=== PATIENT | male | born 1940 | race Caucasian/White ===

== ENCOUNTER 2016-07-22 16:31 | Observation (INO) | payer OTHER ==
--- NOTE | ~2016-07-22 | HP ---
History And Physical [place] [id number] [facility] [place]. [address] NAME: BETSEY SCHULTE : 38 STATUS : ADM Hugo PAT#: [id number] AGE: 76 ADM/REG DATE : 07/22/16 MR#: [id number] REPORT SERV DATE: 07/23/16 DICTATED BY: JEB TERRY DATE: 07/23/16 REPORT STATUS : Draft TRANSCRIBED BY: MODBrittany DATE: 07/23/16 DATE OF ADMISSION: 07/22/2016 CHIEF COMPLAINT: Intractable nausea, vomiting, and generalized weakness. HISTORY OF PRESENT ILLNESS: This is a 76-year-old male, who presents to the emergency room at [facility] with the above-mentioned complaint. History is obtained from the patient and his , who is at bedside, and we also reviewed data available on the happn system as well. According to Mr. Schulte and his , he had been in his usual state of health until about two weeks or so ago when he started having a cough. This was accompanied by massive sinus drainage according to him, which was his main problem. He was at that time seen by his primary care physician, who had prescribed him amoxicillin and later a nasal spray as well. Unfortunately, patient did not take the amoxicillin as he had a vague recollection maybe he would have been allergic to it in the past. However, refilled it, but he did not take it. Instead, he has been taking Benadryl orally because of his presumed allergic sinus problems. This has not really helped him but he continues to take it. However, today after lunch, when he took one he started having violent shaking all over his body and this has never happened before. He called EMS, and the patient was subsequently brought to the emergency room to be evaluated. While in the ambulance, he also had nausea with two episodes of vomiting. In the emergency room, initial workup revealed he had leukocytosis with a febrile illness. He had intractable nausea and vomiting along with his cough. Hospitalist Service is asked to admit him for further evaluation and treatment. At the time of my evaluation, he denied any chest pain, palpitations, or orthopnea. He did have a cough, which was essentially nonproductive, not associated with any hemoptysis, night sweats, or weight loss. He has not had any recent falls or loss of consciousness. No history of fevers or chills at home. He did have one episode of this shaking, which he came in for. No history of hematemesis, hematochezia, or hematuria. No other history of recent travel or exposures. PAST MEDICAL HISTORY: None. SOCIAL HISTORY: He does not smoke, drink, or use recreational drugs. FAMILY HISTORY: Noncontributory. MEDICATIONS: His medications at home were reviewed by me in the chart today and reordered by me. REVIEW OF SYSTEMS: As in history of present illness. All other systems were reviewed in detail and are quite unremarkable. History And Physical [address] [place]. [address] NAME: BETSEY SCHULTE : 39 STATUS : ADM Hugo PAT#: [id number] AGE: 76 ADM/REG DATE : 07/22/16 MR#: [id number] REPORT SERV DATE: 07/23/16 DICTATED BY: JEB TERRY DATE: 07/23/16 REPORT STATUS : Draft TRANSCRIBED BY: TERESA DATE: 07/23/16 PHYSICAL EXAMINATION: GENERAL: This is a pleasant 76-year-old, not in any acute distress. He is alert, awake, and oriented to time, place, and person. HEENT: His head is atraumatic, normocephalic. Pupils are equal, reacting to light and accommodating. External ocular muscles are intact. Membranes are moist and pink. Sclerae are nonicteric. NECK: Supple with no jugular venous distention, lymphadenopathy, or thyromegaly. LUNGS: Clear to auscultation with no wheezes, rubs, or crackles. HEART: Heart sounds were regular with no murmurs, rubs, or gallops. ABDOMEN: Soft, nontender. Bowel sounds are present. EXTREMITIES: No cyanosis, clubbing, or edema. NEUROLOGIC: Grossly intact. No focal sensory or motor deficits. Higher functions appeared intact. Gait was not examined. VITAL SIGNS: His vital signs today showed a temperature of 99.3 upon arrival, pulse was 84, respirations 20 a minute, and blood pressure upon arrival was 123/88, oxygen saturations were 96%, breathing 2-3 L via nasal cannula. LABORATORY DATA: Reviewed on the happn system showed a normal CMP with a blood glucose of 103. Troponin was 0.02 and lactate was 1.5. BNP was 111.1. CBC showed a white blood cell count of 25,500, otherwise, normal hemoglobin, hematocrit, and platelet count. Urinalysis did not reveal any gross abnormality. Films of the CTA of his chest were reviewed by me on the PACS today and interpreted by me. Per my interpretation, there is no pulmonary embolism. Lung windows did not reveal any lobar consolidations, effusions. 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 IMPRESSION: 1. Generalized weakness. 2. Intractable nausea and vomiting. 3. Leukocytosis. 4. Febrile illness. 5. Dyspnea with cough. 6. Ascending thoracic aorta of 4 cm without dissection. PLAN: We will admit Mr. Schulte to the Hospitalist Service with telemetry for a 24-hour observation period. After cultures are drawn, we will start him on empiric IV antibiotic therapy. Check his lactate procalcitonin level. Provide him with intravenous Zofran and Phenergan for his symptoms of nausea and vomiting, keep him n.p.o. for now. We will start him on IV fluids for volume replacement, check chemistry, and replete electrolytes as needed. His CTA is negative for any infiltrates or consolidation. It is quite possible he might have had an aspiration causing pneumonitis, but however, I think acute bronchitis is probably what he has along with sinusitis. We will start him on antibiotics as mentioned above. We will start him on bronchodilators and continue oxygen therapy and start him on intravenous and nasal steroids. He will be on unfractionated heparin for DVT prophylaxis while here as well. I have discussed the above plans with the patient and his . Questions were answered, and they are agreeable to the above recommendations. I have also History And Physical [address] [address] NAME: BETSEY SCHULTE : 38 STATUS : ADM Hugo PAT#: [id number] AGE: 76 ADM/REG DATE : 07/22/16 MR#: [id number] REPORT SERV DATE: 07/23/16 DICTATED BY: JEB TERRY DATE: 07/23/16 REPORT STATUS : Draft TRANSCRIBED BY: TERESA DATE: 07/23/16 told them that he will not be taking his antihistamine as he used to. They are agreeable to the above recommendations. Hospitalist Service will be following him during his stay here. /ANTL Jeb Terry M.D. / [id number] CC: Paras Arreaga M.D.
--- NOTE | ~2016-07-22 | DS ---
Discharge Summary [facility] [address] [facility] [place] [place]. [address] NAME: BETSEY SCHULTE : 38 STATUS : ADM Hugo PAT#: [id number] AGE: 76 ADM/REG DATE : 07/22/16 MR#: [id number] REPORT SERV DATE: 07/24/16 DICTATED BY: EVA MCGREGOR DATE: 07/24/16 REPORT STATUS : Draft TRANSCRIBED BY: MODL DATE: 07/24/16 ADMISSION DATE: 07/22/2016 DISCHARGE DATE: 07/24/2016 FINAL HOSPITAL DIAGNOSES: 1. Nausea, vomiting, weakness, resolved. 2. Leukocytosis, possible viral illness or steroid reaction. 3. Sinusitis. CONSULTATIONS: None. PROCEDURES: CTA of the chest showing no pulmonary embolism. Ascending thoracic aortic aneurysm measuring 4 cm. No dissection. No active pulmonary disease. Cholelithiasis without cholecystitis. Bilateral lower extremity Dopplers showing no evidence of DVT in left or right lower extremity. Chest x-ray done on 07/22/2016 showing no acute process. CURRENT PHYSICAL FINDINGS AND HISTORY OF PRESENT ILLNESS: Please see dictated H and P by Dr. Alanis. In brief, the patient is a 76-year-old male. He presented with a complaint of sinus symptoms and cough, going on for nausea, vomiting, and shaking episode prior to admission. Vital signs at the time of admission, temperature was 99.3, his T-max has been 99.5 on 07/23/2016. Otherwise, he has been completely afebrile. The patient has not been tachycardic. He has had no hypoxia. Respiratory rate and sats have been well within norm. LABORATORY WORK: Laboratory at time of admission, he had a procalcitonin of 1.77. Subsequent recheck on the 07/24/2016 was 0.82. Initial BMP was unremarkable. His creatinine was 1.11, has decreased to 0.97. He had a PO4 of 1.9 which corrected to 2.9. He had a troponin of less than 0.02 on admission. BNP of 111.1, lactate 1.5. He had a white count of 25,000 on admission, 17 the following day and 24.9 the day after. H and H at the time of discharge was 12.3 and 36.1, platelets were 256. He had a D-dimer of 2.2. Flu screen which was negative. A urinalysis which was negative. Blood cultures have been negative to date. Sputum culture in progress. Chest x-ray was unremarkable. HOSPITAL COURSE: The patient was admitted with a suspected viral illness or sinusitis. His symptoms seem to be improving at the time of discharge. He was placed on IV fluids, Levaquin, and subcu heparin. He was also placed on Solu-Medrol 80 IV q.8 and DuoNeb. I saw the patient on 07/23/2016, ordered a flu swab that was negative. Replaced his phosphorus. Ordered followup labs. Stopped his IV fluids. Ordered an ultrasound and placed him on a regular diet. When he was re examined today, he clinically appeared fine. He was having no specific complaints whatsoever; however, his leukocytosis had increased given suspicion this was from the steroids. I had a long discussion with him concerning his aneurysm, the need for followup and he voiced understanding. I felt even with his negative CTA, with his D- dimer being markedly elevated, an ultrasound would be prudent to rule out lower extremity DVT and this was negative. Repeat procalcitonin was checked and it was negative. The patient then requested to go home and follow up with his primary care physician. Certainly from the standpoint of his initial illness, this does seem to be resolved. He has been given instructions on the aneurysm and need for followup. I expressed with him my concern Discharge Summary [address] [place]. [address] NAME: BETSEY SCHULTE : 38 STATUS : ADM Hugo PAT#: [id number] AGE: 76 ADM/REG DATE : 07/22/16 MR#: [id number] REPORT SERV DATE: 07/24/16 DICTATED BY: EVA MCGREGOR DATE: 07/24/16 REPORT STATUS : Draft TRANSCRIBED BY: MODBrittany DATE: 07/24/16 that although his procalcitonin was lower and he was not having any fever, his leukocytosis may be secondary to the steroids, certainly an underlying bone marrow problem worsened infection or this other source could be noted. I also discussed with the patient my preference would be that he would discontinue the steroids. We will repeat his blood count in the morning as he was not becoming lower, look for secondary source of infection, recheck his blood cultures and consider as the etiologies for the elevated white count. Because of the weather and the patient feeling fine, he did not wish to do this. He understands that at this point without his white count returning normal and understanding that it is multitudes over normal, that there is some risk involved including undiagnosed bone marrow problem, worsening infection, sepsis, or other underlying problems with his initial episode which brought him to the hospital. He understands all this, but again accepts the risks and benefits at this time and is requesting to be discharged home. Since he does appear clinically stable, I would not feel so strongly as to ask him to sign out AMA, but would request that he make a followup appointment with his PCP, first of next week to recheck his blood counts and continue his evaluation and followup. The patient agrees to do so, and he certainly responsible to do so. His was present during the conversation, had the opportunity to ask any questions, and they were answered to best of my ability. At this time, the patient is still requesting discharge, so we will discharge this evening. MEDICATIONS: Aspirin 81, Os-Jae 500 daily, multivitamin one per day, fish oil 2000 one per day, Antivert 25, Cialis 20, Benadryl 25. He was given a prescription for Levaquin 750 one p.o. daily #6 to complete a one-week course. He is to return for any recurrence of his symptoms. TASHA/TERESA Eva Mcgregor M.D. / [id number] CC: Paras Gibson M.D.
[2016-07-22 19:02] LABS: BASOPHILS 0.4 %; EOSINOPHILS 1.5 %; EOSINOPHILS ABSOLUTE 0.39 10/3/uL (0.0-0.53); HEMOGLOBIN 14.1 g/dL (13.6-17.8); IMMATURE GRANULOCYTES 0.5 %; IMMATURE GRANULOCYTES ABSOLUTE 0.14 10/3/uL (0.0-0.11); LYMPHOCYTES 3.4 %; LYMPHOCYTES ABSOLUTE 0.88 10/3/uL (0.67-4.30); MEAN CORPUS HGB CONC 33.6 g/dL (32.0-36.0); MEAN CORPUSCULAR HEMOGLOB 29.6 pg (26.0-34.0); MEAN CORPUSCULAR VOLUME 88.2 fL (80-100); MEAN PLATELET VOLUME 9.8 fL (9.2-13.0); MONOCYTES 2.3 %; MONOCYTES ABSOLUTE 0.59 10/3/uL (0.21-1.20); NEUTROPHILS 91.9 %; NEUTROPHILS ABSOLUTE 23.44 10/3/uL (2.02-8.40); PLATELET COUNT 265 10/3/uL (150-400); RED CELL COUNT 4.76 10/6/uL (4.7-6.1)
[2016-07-22 19:09] LABS: ER CBC TAT 0 Hrs 14 Mins; WHITE BLOOD CELLS 25.5 10/3/uL (4.5-10.5)
[2016-07-22 19:11] LABS: INTERNATIONAL NORMAL RATI 1.2 UNITS (-); PROTIME (NOT ORD) 14.8 SEC (12.0-14.5)
[2016-07-22 19:14] LABS: MANUAL DIFF NO %
[2016-07-22 19:17] LABS: BUN (BLOOD UREA NITROGEN) 23 MG/DL (6-23); CALCIUM, SERUM 9.4 MG/DL (8.5-10.4); CHEST PAIN PROFILE TAT 0 Hrs 22 Mins; CHLORIDE, SERUM 109 MMOL/L (96-112); CO2 (CARBON DIOXIDE) 24 MMOL/L (24-34); CREATININE 1.11 MG/DL (0.70-1.30); GFR AFRICAN AMERICAN 74 ML/MIN (>=60); GFR NON AFRICAN AMERICAN 64 ML/MIN (>=60); GLUCOSE, SERUM 103 MG/DL (60-99); POTASSIUM, SERUM 4.5 MMOL/L (3.5-5.3); SODIUM, SERUM 142 MMOL/L (135-148); TROPONIN I <0.02 NG/ML (<0.05)
[2016-07-22 19:37] LABS: BAND NEUTROPHILS 8 %; ER DIFF TAT 0 Hrs 42 Mins; LYMPHOCYTES 3 %; LYMPHOCYTES ABSOLUTE (CALC) 0.77 10/3/uL (0.67-4.30); MONOCYTES 1 %; MONOCYTES ABSOLUTE (CALC) 0.26 10/3/uL (0.21-1.20); NEUTROPHILS ABSOLUTE (CALC) 24.48 10/3/uL (2.02-8.40); PLATELET ESTIMATE ADQ (ADEQUATE); RBC MORPHOLOGY NORM (NORMAL); SEGMENTED NEUTROPHIL (0) 88 %; TOTAL NUCLEATED CELLS 100
[2016-07-22] MEDS ORDERED: MCZ25 PO (20:08)
[2016-07-22] MEDS ORDERED: ASAB PO (20:08)
[2016-07-22] MEDS ORDERED: MULTIVITAMI1 PO (20:08)
[2016-07-22] MEDS ORDERED: OS500+D PO (20:08)
[2016-07-22] MEDS ORDERED: FISH-EPA1000 MG PO (20:09)
[2016-07-22] MEDS ORDERED: BEN25 PO (20:09)
[2016-07-22] MEDS ORDERED: CIALIS20 MG PO (20:09)
[2016-07-22 21:37] LABS: WBC (NOT ORDERED) (RFLEX) 0 (0-5)
[2016-07-22 21:46] LABS: ASCORBIC ACID (UR NOT ORDER) NEG (NEG); BILIRUBIN, URINE NEGATIVE (NEG); ER URINALYSIS TAT 0 Hrs 11 Mins; KETONE, URINE TRACE MG/DL (NEG); LEUKOCYTE ESTERASE(NOT OR NEG (NEG); NITRITE (URINE) NEG (NEG)
[2016-07-23 08:30] LABS: BASOPHILS 0.1 %; BASOPHILS ABSOLUTE 0.02 10/3/uL (0.0-0.16); EOSINOPHILS 0.3 %; EOSINOPHILS ABSOLUTE 0.06 10/3/uL (0.0-0.53); HEMATOCRIT 38.6 % (40.0-51.0); HEMOGLOBIN 13.3 g/dL (13.6-17.8); IMMATURE GRANULOCYTES 0.5 %; IMMATURE GRANULOCYTES ABSOLUTE 0.09 10/3/uL (0.0-0.11); LYMPHOCYTES 8.2 %; LYMPHOCYTES ABSOLUTE 1.42 10/3/uL (0.67-4.30); MEAN CORPUS HGB CONC 34.5 g/dL (32.0-36.0); MEAN CORPUSCULAR HEMOGLOB 30.3 pg (26.0-34.0); MEAN CORPUSCULAR VOLUME 87.9 fL (80-100); MEAN PLATELET VOLUME 10.2 fL (9.2-13.0); MONOCYTES 2.3 %; MONOCYTES ABSOLUTE 0.39 10/3/uL (0.21-1.20); NEUTROPHILS 88.6 %; NEUTROPHILS ABSOLUTE 15.25 10/3/uL (2.02-8.40); PLATELET COUNT 241 10/3/uL (150-400); RBC DISTRIBUTION WIDTH 12.9 % (12.0-16.0); RED CELL COUNT 4.39 10/6/uL (4.7-6.1); WHITE BLOOD CELLS 17.2 10/3/uL (4.5-10.5)
[2016-07-23 08:36] LABS: MANUAL DIFF NO %
[2016-07-23 08:52] LABS: BUN (BLOOD UREA NITROGEN) 22 MG/DL (6-23); CALCIUM, SERUM 8.6 MG/DL (8.5-10.4); CHLORIDE, SERUM 105 MMOL/L (96-112); CO2 (CARBON DIOXIDE) 25 MMOL/L (24-34); CREATININE 0.99 MG/DL (0.70-1.30); GFR AFRICAN AMERICAN 85 ML/MIN (>=60); GFR NON AFRICAN AMERICAN 73 ML/MIN (>=60); PHOSPHORUS, SERUM 1.9 MG/DL (2.5-4.5); SODIUM, SERUM 141 MMOL/L (135-148)
[2016-07-23 08:53] LABS: GLUCOSE, SERUM 174 MG/DL (60-99)
[2016-07-23 17:31] LABS: INFLUENZA A SCREEN NEGATIVE (NEGATIVE); INFLUENZA B SCREEN NEGATIVE (NEGATIVE)
[2016-07-24 07:28] LABS: HEMATOCRIT 36.1 % (40.0-51.0); HEMOGLOBIN 12.3 g/dL (13.6-17.8); MANUAL DIFF YES %; MEAN CORPUS HGB CONC 34.1 g/dL (32.0-36.0); MEAN CORPUSCULAR HEMOGLOB 30.2 pg (26.0-34.0); MEAN CORPUSCULAR VOLUME 88.7 fL (80-100); MEAN PLATELET VOLUME 9.7 fL (9.2-13.0); PLATELET COUNT 256 10/3/uL (150-400); RBC DISTRIBUTION WIDTH 13.2 % (12.0-16.0); RED CELL COUNT 4.07 10/6/uL (4.7-6.1); WHITE BLOOD CELLS 24.9 10/3/uL (4.5-10.5)
[2016-07-24 07:40] LABS: BUN (BLOOD UREA NITROGEN) 24 MG/DL (6-23); CALCIUM, SERUM 8.8 MG/DL (8.5-10.4); CHLORIDE, SERUM 109 MMOL/L (96-112); CO2 (CARBON DIOXIDE) 25 MMOL/L (24-34); CREATININE 0.97 MG/DL (0.70-1.30); GFR AFRICAN AMERICAN 87 ML/MIN (>=60); GFR NON AFRICAN AMERICAN 75 ML/MIN (>=60); GLUCOSE, SERUM 140 MG/DL (60-99); POTASSIUM, SERUM 3.9 MMOL/L (3.5-5.3); SODIUM, SERUM 142 MMOL/L (135-148)
[2016-07-24 07:41] LABS: PHOSPHORUS, SERUM 2.9 MG/DL (2.5-4.5)
[2016-07-24 08:18] LABS: BAND NEUTROPHILS 2 %; LYMPHOCYTES 9 %; LYMPHOCYTES ABSOLUTE (CALC) 2.24 10/3/uL (0.67-4.30); MONOCYTES 3 %; MONOCYTES ABSOLUTE (CALC) 0.75 10/3/uL (0.21-1.20); NEUTROPHILS ABSOLUTE (CALC) 21.91 10/3/uL (2.02-8.40); SEGMENTED NEUTROPHIL (0) 86 %; TOTAL NUCLEATED CELLS 100
[2016-07-24 08:19] LABS: PLATELET ESTIMATE ADQ (ADEQUATE); POLYCHROMASIA 1+ (2-5/OIF) (0-1/OIF); TEARDROP SHAPED RBCS OCC (0-2/OIF)
[2016-07-24 16:47] LABS: PROCALCITONIN 0.82 ng/mL (<0.5)
== END 2016-07-24 20:21 | disposition home or self-care (01) ==
LOC: ER 16:31 → 4SO 23:35
PROVIDERS: Emergency Medicine; Internal Medicine; Internal Medicine Pulmonary Disease
DX: R53.1 Weakness (principal); R11.2 Nausea with vomiting, unspecified; D72.829 Elevated white blood cell count, unspecified; J32.9 Chronic sinusitis, unspecified; R50.9 Fever, unspecified; R06.00 Dyspnea, unspecified; R05 Cough; Z79.82 Long term (current) use of aspirin; Z79.52 Long term (current) use of systemic steroids; Z79.899 Other long term (current) drug therapy
CPT/HCPCS: 71010; 71275; 80048; 81001; 83605; 83735; 83880; 84100; 84145; 84484; 85025; 85379; 85610; 85730; 87040; 87070; 87205; 87804; 93970; 94640; 96365; 96372; 96375; 96376; 99285; A9270-GY; G0378; J1956; J2930; Q9967